=== PATIENT | male | born 1980 | race Caucasian/White ===

== ENCOUNTER 2018-07-25 18:43 | Inpatient (IN) | payer MEDICAID ==
[~2018-07-25] VITALS: Ht 157.5 cm; Wt 90.7 kg
[2018-07-25 23:46] LABS: BASOPHIL % 0 % (0-2); PLATELET COUNT 378 x10^3mcL (130-400); RED CELL DISTRIBUTION WIDTH 14.4 % (11.5-14.5)
[2018-07-25 23:54] LABS: CALCIUM 8.4 mg/dL (8.5-10.1); CARBON DIOXIDE 26.4 mmol/L (21-32); CHLORIDE SERUM 105 mmol/L (98-107); GFR1 > 60 mL/min; GLUCOSE SERUM 164 mg/dL (74-106); POTASSIUM SERUM 3.2 mmol/L (3.5-5.1); SODIUM SERUM 141 mmol/L (136-145)
[2018-07-25 23:59] LABS: ALBUMIN 3.7 g/dL (3.4-5.0); ALKALINE PHOSPHATASE 101 U/L (46-116); ALT/SGPT 61 U/L (16-63); AST/SGOT 22 U/L (15-37); BILIRUBIN TOTAL 0.2 mg/dL (0.20-1.00); TOTAL PROTEIN, SERUM 8.1 g/dL (6.4-8.2)
[2018-07-26 00:25] VITALS: BP 111/72
[2018-07-26 01:20] LABS: CHOLESTEROL/HDL RATIO 2.3; MAGNESIUM 2.7 mg/dL (1.8-2.4); PHOSPHOROUS 2.3 mg/dL (2.5-4.9)
[2018-07-26 01:32] LABS: FREE T4 0.97 ng/dL (0.76-1.46); FREE THYROXINE INDEX 2.4 ug/dL (1.4-4.5); T4(THYROXINE) 7.1 ug/dL (4.7-13.3)
[2018-07-26 02:03] LABS: microscopic required? NO
[2018-07-26 02:15] LABS: UA SPECIFIC GRAVITY >=1.030 (1.005-1.035); urine erythrocyte NEGATIVE (NEGATIVE)
[2018-07-26 02:24] LABS: AMPHETAMINE QUAL UR NONE DETECTED (See below)
[2018-07-26 03:50] VITALS: BP 111/72
[2018-07-26 05:49] VITALS: BP 109/77
[2018-07-26 06:39] LABS: PLATELET COUNT 382 x10^3mcL (130-400)
[2018-07-26 07:10] LABS: CALCIUM 8.9 mg/dL (8.5-10.1); CARBON DIOXIDE 23.2 mmol/L (21-32); CHLORIDE SERUM 106 mmol/L (98-107); GFR1 > 60 mL/min; GLUCOSE SERUM 174 mg/dL (74-106); POTASSIUM SERUM 4.1 mmol/L (3.5-5.1); SODIUM SERUM 140 mmol/L (136-145)
[2018-07-26 07:23] LABS: RED CELL DISTRIBUTION WIDTH 14.6 % (11.5-14.5)
[2018-07-26 07:24] LABS: BASOPHIL % 0 % (0-2)
[2018-07-26 08:27] LABS: T3 TOTAL 1.36 ng/mL
[2018-07-26 09:47] VITALS: BP 132/79
[2018-07-26 17:27] VITALS: BP 118/70
[2018-07-26 21:10] VITALS: BP 117/63
[2018-07-27 05:41] VITALS: BP 119/77
[2018-07-27 06:41] LABS: PLATELET COUNT 378 x10^3mcL (130-400); RED CELL DISTRIBUTION WIDTH 14.4 % (11.5-14.5)
[2018-07-27 07:18] LABS: CALCIUM 8.6 mg/dL (8.5-10.1); CHLORIDE SERUM 104 mmol/L (98-107); CREATININE SERUM 0.8 mg/dL (0.7-1.3); GFR1 > 60 mL/min; GLUCOSE SERUM 149 mg/dL (74-106); MAGNESIUM 2.4 mg/dL (1.8-2.4); PHOSPHOROUS 3.8 mg/dL (2.5-4.9); POTASSIUM SERUM 4.2 mmol/L (3.5-5.1); SODIUM SERUM 138 mmol/L (136-145)
[2018-07-27 09:35] VITALS: BP 114/71
[2018-07-27 11:26] LABS: BAND NEUTROPHIL 6 % (0-10); BASOPHIL 0 % (0-2); MONOCYTE 1 % (0-7); PLATELET MORPHOLOGY PLATELETS NORMAL; SEGMENTED NEUTROPHILS 89 % (37-75); rbc morphology (normal/abnorm) ABNORMAL (NORMAL); tear drop cell (dacryocyte) 1+
[2018-07-27] MEDS ORDERED: PREDNISONE20 MG PO ×2 (12:05→12:06)
[2018-07-27] MEDS ORDERED: LEVOFLOXACIN500 M1 PO (12:05)
[2018-07-27] MEDS ORDERED: PRE20 PO (12:05)
[2018-07-27] MEDS ORDERED: PREDNISONE2.5 MG PO (12:06)
[2018-07-27] MEDS ORDERED: VENTOLIN H0.09 MG/A1 INH (12:07)
[2018-07-27 13:17] VITALS: BP 114/71
== END 2018-07-27 14:40 | disposition home or self-care (01) | DRG 140 ==
LOC: ED 18:43 → MU 23:16
PROVIDERS: Emergency Medicine; Family Medicine
DX: J44.1 Chronic obstructive pulmonary disease with (acute) exacerbation (principal); J96.01 Acute respiratory failure with hypoxia; E11.65 Type 2 diabetes mellitus with hyperglycemia; E83.39 Other disorders of phosphorus metabolism; E83.51 Hypocalcemia; E87.6 Hypokalemia; E66.9 Obesity, unspecified; Z68.36 Body mass index [BMI] 36.0-36.9, adult; D72.829 Elevated white blood cell count, unspecified; T38.0X5A Adverse effect of glucocorticoids and synthetic analogues, initial encounter; Y92.018 Other place in single-family (private) house as the place of occurrence of the external cause; Z91.19 Patient's noncompliance with other medical treatment and regimen
CPT/HCPCS: 36600; 82962; 83880; 84439; 94150; J1644; J1956; J2920; J2930; J3475; J7040; J7613; J7620; J7626; J7644; Q0092